=== PATIENT | male | born 1990 | race American Indian/Alaskan Native ===

== ENCOUNTER 2019-07-23 14:44 | Emergency (ER) | payer SELFPAY ==
--- NOTE | 2019-07-23 15:42 | Emergency Department Report ---
Blank Doc - Documentation Documentation: 28-year-old male that presents with acute headache. Denies any head trauma or injuries. Exam: miguel exam within normal limits. This initial assessment/diagnostic orders/clinical plan/treatment(s) is/are subject to change based on patient's health status, clinical progression and re- assessment by fellow clinical providers in the ED. Further treatment and workup at subsequent clinical providers discretion. Patient/guardians urged not to elope from the ED as their condition may be serious if not clinically assessed and managed. Initial orders include: 1- Patient sent to [facility] for further evaluation and treatment
== END 2019-07-23 16:37 | disposition left against medical advice (07) ==
LOC: ED 14:44
DX: R51 Headache (principal); Z53.21 Procedure and treatment not carried out due to patient leaving prior to being seen by health care provider